=== PATIENT | female | born 1970 | race Two or more races ===

== ENCOUNTER 2018-04-01 10:19 | Emergency (ER) | payer MEDICAID ==
[~2018-04-01] VITALS: Ht 167.6 cm; Wt 93.9 kg
[2018-04-01 10:29] VITALS: Ht 167.6 cm; Wt 93.9 kg
[2018-04-01 12:28] VITALS: BP 125/74
== END 2018-04-01 13:06 | disposition home or self-care (01) ==
LOC: ED 10:19
DX: S42.441A Displaced fracture (avulsion) of medial epicondyle of right humerus, initial encounter for closed fracture (principal); W11.XXXA Fall on and from ladder, initial encounter; Y93.89 Activity, other specified; Y92.89 Other specified places as the place of occurrence of the external cause; Y99.8 Other external cause status